=== PATIENT | female | born 1980 | race Caucasian/White ===

== ENCOUNTER → 2022-07-19 | Outpatient (CLI) | payer OTHER ==
--- NOTE | 2022-07-20 07:37 | MM ---
Reason for Exam: Screening (asymptomatic). Patient History: Menarche at age 12. Patient has no children. Premenopausal. Risk Values: Magdalena 5 year model risk: 0.7%. NCI Lifetime model risk: 10.9%. Tissue Density: The breast tissue is heterogeneously dense. This may lower the sensitivity of mammography. Findings: Analyzed By CAD. There are occasional tiny benign-appearing round calcification bilaterally. There is no suspicious group of microcalcifications or suspicious mass in either breast. Overall Assessment: Negative, BI-RAD 1 Management: Screening Mammogram of both breasts in 1 year. A clinical breast exam by your physician is recommended on an annual basis and results should be correlated with mammographic findings. Electronically signed and approved by: Crispin Crockett M.D.
== END | disposition home or self-care (01) ==
LOC: RADMAMWWP 13:45
PROVIDERS: ATTEND Obstetrics & Gynecology
DX: Z12.31 Encounter for screening mammogram for malignant neoplasm of breast (principal)
CPT/HCPCS: 77067

== ENCOUNTER → 2023-05-08 | Outpatient (CLI) | payer OTHER ==
--- NOTE | 2023-05-08 07:48 | MM ---
Reason for Exam: Clinical finding. Last screening mammogram was performed 10 month(s) ago. Patient History: Menarche at age 12. Patient has no children. Premenopausal. Risk Values: Magdalena 5 year model risk: 0.8%. NCI Lifetime model risk: 10.8%. Tissue Density: There are scattered fibroglandular densities. Findings: Analyzed By CAD. Palpable marker placed along the lateral aspect of each breast. There are underlying areas of asymmetric density which appear largely unchanged. One area along the retroareolar plane middle to posterior depth right MLO view may be slightly more pronounced but there is no persisting abnormality on 3-D images. Further ultrasound evaluation is recommended. Overall Assessment: Incomplete: need additional imaging evaluation, BI-RAD 0 Management: Diagnostic Breast Ultrasound of both breasts. Electronically signed and approved by: Cecelia Beaulieu M.D. Radiologist
--- NOTE | 2023-05-08 08:27 | USB ---
Reason for Exam: Clinical finding. Patient History: Menarche at age 12. Patient has no children. Premenopausal. Risk Values: Magdalena 5 year model risk: 0.8%. NCI Lifetime model risk: 10.8%. Technique: Method: Targeted. Prior Study Comparison: 07/19/2022 Bilateral MG screening mammo w [facility], [facility]. Findings: The upper outer quadrant of both breasts, the lower outer quadrant of both breasts, the axilla of both breasts and the retroareolar of both breasts were scanned. Targeted ultrasound lateral half of the bilateral breasts including scanning of the subareolar regions and axilla. No solid or cystic lesion is seen on either side. Particular attention to the right breast 10:00 palpable site and left breast 4:00 palpable site. Overall Assessment: Probably benign, BI-RAD 3 Management: Diagnostic Mammogram of the right breast in 6 months. As a precautionary measure for the central posterior MLO asymmetric density. Further clinical management of any suspicious palpable areas. A clinical breast exam by your physician is recommended on an annual basis and results should be correlated with mammographic findings. This exam should not preclude additional follow-up of suspicious palpable abnormalities. Results were given to the patient verbally at the time of exam. Electronically signed and approved by: Cecelia Beaulieu M.D. Radiologist
== END | disposition home or self-care (01) ==
LOC: RADMAMWWP 06:53
PROVIDERS: ATTEND Family Medicine
DX: N63.0 Unspecified lump in unspecified breast (principal); R92.323 Mammographic fibroglandular density, bilateral breasts
CPT/HCPCS: 77062; 77066

== ENCOUNTER → 2023-06-22 | Outpatient (CLI) | payer OTHER ==
[2023-06-22 11:20] LABS: African American GFR (CKD) >90 (>60 ml/min/1.73 sqM); Blood Urea Nitrogen 12 mg/dL (7-17); Non-African American GFR(CKD) 88 (>60 ml/min/1.73 sqM)
--- NOTE | 2023-06-28 07:50 | CT ---
EXAMINATION TYPE: CT abdomen w con CT DLP: 2877.4 mGycm, Automated exposure control for dose reduction was used. DATE OF EXAM: 06/22/2023 11:42 AM COMPARISON: CT abdomen pelvis most recent from CLINICAL INDICATION:Female, 43 years old with history of R10.9 UNSPECIFIED ABDOMINAL PAIN; left side abd pain TECHNIQUE: Axial CT abdomen w con;Sagittal and coronal reformats were created on a separate workstat ion. Contrast used:100 ml mL of Isovue 300 with IV Contrast, (none if empty) Oral contrast used: with Oral Contrast (none if empty) FINDINGS: LOWER CHEST: Unremarkable ABDOMEN LIVER: Unremarkable GALLBLADDER AND BILE DUCTS: Unremarkable. PANCREAS: Unremarkable. SPLEEN: Unremarkable. ADRENAL GLANDS: Unremarkable. KIDNEYS AND URETERS: No evidence of hydronephrosis or renal calculus. The ureters are unremarkable. ABDOMEN & PELVIS STOMACH AND BOWEL: Stomach and duodenum are unremarkable. No evidence of bowel obstruction. PERITONEUM/RETROPERITONEUM: No evidence of pneumoperitoneum or free fluid. VASCULATURE: No evidence of aortic aneurysm. MUSCULOSKELETAL: No acute osseous abnormalities. Mild multilevel endplate spondylosis. LYMPH NODES: No gross evidence for lymphadenopathy. SOFT TISSUE/ABDOMINAL WALL: Unremarkable IMPRESSION: 1. No acute process is identified.
== END | disposition home or self-care (01) ==
LOC: RADCTMAIN 10:36
PROVIDERS: ATTEND Family Medicine
DX: R10.9 Unspecified abdominal pain (principal)
CPT/HCPCS: 82565; 84520; 74160; 36415; Q9967

== ENCOUNTER → 2024-03-21 | Outpatient (CLI) | payer OTHER ==
--- NOTE | 2024-03-21 14:01 | MM ---
Reason for Exam: Follow-up at short interval from prior study. Last screening mammogram was performed 10 month(s) ago. Patient History: Menarche at age 12. Patient has no children. Premenopausal. Last menstrual period: 03/19/2024 Risk Values: Magdalena 5 year model risk: 0.9%. NCI Lifetime model risk: 10.7%. Prior Study Comparison: 07/19/2022 Bilateral MG screening mammo w CAD, [facility]. 05/08/2023 Bilateral MG 3D diag mammo w/cad [facility], [facility]. Tissue Density: Right: There are scattered areas of fibroglandular density. Findings: Analyzed By CAD. Anterior upper outer quadrant focal asymmetry as well as 6:00 posterior focal asymmetry both appear more defined. However, on spot compression views, all of these areas seem to disperse. Ongoing short interval follow-up is recommended. Overall Assessment: Probably benign, BI-RAD 3 Management: Diagnostic Mammogram of both breasts in 6 months. Total one-year follow-up right breast and annual exam of the left breast. Results were given to the patient verbally at the time of exam. Patient should continue monthly self-breast exams. A clinical breast exam by your physician is recommended on an annual basis. This exam should not preclude additional follow-up of suspicious palpable abnormalities. Note on Magdalena scores and lifetime risk: 1. A Magdalena score greater than 3% is considered moderate risk. If this is the case, consider specialist referral to assess eligibility for a risk reducing agent. 2. If overall lifetime risk for the development of breast cancer is 20% or higher, the patient may qualify for future screening with alternating mammogram and breast MRI. [facility], , 03/21/2024 1:58 PM. Electronically signed and approved by: Cecelia Beaulieu M.D. Radiologist
== END | disposition home or self-care (01) ==
LOC: RADMAMWWP 13:11
PROVIDERS: ATTEND Family Medicine
DX: R92.8 Other abnormal and inconclusive findings on diagnostic imaging of breast (principal); R92.321 Mammographic fibroglandular density, right breast
CPT/HCPCS: 77061; 77065